=== PATIENT | female | born 1940 | race African-American/Black ===

== ENCOUNTER 2024-11-01 19:03 | Emergency (ER) | payer MEDICARE ==
[~2024-11-01] VITALS: Ht 165.1 cm; Wt 84.8 kg
[2024-11-01 19:13] VITALS: BP 144/84; PULSE 62; RESP 18; TEMP 98.2; O2SAT 100
[2024-11-01 21:35] LABS: HEMATOCRIT 37.6 % (36.0-48.0); HEMOGLOBIN 12.1 g/dL (12.0-16.0); MEAN CORPUSCULAR HEMOGLOBIN 31.2 pg (28.0-32.0); MEAN CORPUSCULAR HGB CONC 32.2 g/dL (31.0-37.0); MEAN CORPUSCULAR VOLUME 96.9 fL (81.0-99.0); PLATELET 329 x1000/uL (130-400); RED BLOOD CELL COUNT 3.88 mill/uL (4.2-5.4); RED CELL DISTRIBUTION WIDTH 14.3 % (11.6-14.6); WHITE BLOOD COUNT 5.9 x1000/uL (4.5-11.0)
[2024-11-01 21:44] LABS: POTASSIUM 3.8 mEq/L (3.5-5.1)
[2024-11-01 21:46] LABS: CALCIUM 10.1 mg/dL (8.7-10.4)
[2024-11-01 21:50] LABS: CREATININE 1.1 mg/dL (0.6-1.0)
== END 2024-11-02 04:23 | disposition left against medical advice (07) ==
LOC: ER 19:03
DX: R68.89 Other general symptoms and signs (principal); Z53.21 Procedure and treatment not carried out due to patient leaving prior to being seen by health care provider
CPT/HCPCS: 36415; 71045; 80048; 85027; 93005; 99285